=== PATIENT | female | born 1970 | race Caucasian/White ===

== ENCOUNTER 2021-08-09 01:35 | Day surgery (SDC) | payer OTHER, SELFPAY ==
[2021-07-25 13:30] VITALS: BMI 24.2
[2021-08-09 07:04] VITALS: BP 127/77; RESP 18; TEMP 36; O2SAT 98
[2021-08-09] MEDS: LACTATED RINGERS 1,000 ML 150 ML IV CONT (07:18)
--- NOTE | 2021-08-09 07:38 | P.PNAN_ITS ---
Anes - Initial Pre Proc Eval Procedure: Operation Date: 08/09/21 08:00 Proposed Procedures p Screening Colonoscopy - Michael Camarena MD Date/Time: 08/09/21 07:38 Surgeon: Michael Camarena MD Pre Op Diagnosis: neoplasm screening Patient Data Age: 51 Gender: F Height: 1.57 m Weight: 60.9 kg Last Vital Signs Temp 36.0 C L 08/09/21 07:04 Resp 18 08/09/21 07:04 BP 127/77 08/09/21 07:04 Pulse Ox 98 08/09/21 07:04 Allergies Allergy/AdvReac Type Severity Reaction Status Date / Time No Known Allergies Allergy Verified 08/09/21 07:00 Home Medications Medication Instructions Recorded Confirmed Type No Home Medications 07/25/21 08/09/21 History Patient hx anesthesia problems: none Family hx anesthesia problems: none Results Review: All pre-operative results and documents have been reviewed as part of the pre-operative evaluation. [facility] Social History Social History Smoking status: Never smoker Alcohol intake: current Drinks per week: 2 Substance use: never Substance use type: does not use Living arrangements: with family Spiritual care concerns: No Anes - Eval Final PreProcedure Day of Procedure 08/09/21 07:38 Patient weight: normal Heart: regular rate and rhythm Lungs: clear to auscultation Airway: Mallampati scale class II Neurological: alert and oriented Last oral intake: >/= 8 hours ASA classification: I Emergent: no Anesthetic plan: proceed Anesthesia type and monitoring: general GIVS and standard monitoring Results Review: All pre-operative results and documents have been reviewed as part of the pre-operative evaluation. Informed Consent: The patient's anesthetic plan and its attendant risks and benefits were discussed with the patient/family/POA. Questions were solicited and answers provided to the satisfaction of the patient/family/POA.
--- NOTE | 2021-08-09 07:52 | PM.HPGS ---
History of Present Illness History of Present Illness Consent: Risks, benefits, and alternatives have been discussed and questions answered. Patient agrees to proceed with procedure. Chief complaint: neoplasm screening Narrative: Adina Sims is a 51 year old female here for first screening colonoscopy Review of Systems Constitutional: Constitutional: Denies headache(s) and Denies weakness Eyes: Eyes: Denies blurry vision ENT: Reports Normal hearing present, Denies headache(s) and Denies neck pain Cardiovascular: Cardiovascular: Denies chest pain and Denies dyspnea Respiratory: Respiratory: Denies dyspnea Gastrointestinal: Gastrointestinal: Reports no additional gastrointestinal complaints Genitourinary: Genitourinary: Denies dysuria Musculoskeletal: Musculoskeletal: Denies neck pain Integumentary/Breasts: Skin/Breast: Denies dry skin Neurologic: Reports Normal hearing present, Denies headache(s) and Denies weakness Psychiatric: Psychiatric: Denies anxiety Endocrine: Endocrine: Denies change in body appearance Hematologic/Lymphatic: Hematologic/Lymphatic: Denies easy bleeding Allergic/Immunologic: Allergic/Immunologic: Denies urticaria PMF Past Medical History Medical History (Updated 08/09/21 @ 07:53 by Michael Camarena MD) Colon cancer screening Social History Social History Smoking status: Never smoker Alcohol intake: current Drinks per week: 2 Substance use: never Substance use type: does not use Living arrangements: with family Spiritual care concerns: No Meds Home Medications and Allergies Home Medications Medication Instructions Recorded Confirmed Type No Home Medications 07/25/21 08/09/21 History Allergies Allergy/AdvReac Type Severity Reaction Status Date / Time No Known Allergies Allergy Verified 08/09/21 07:00 Vital Signs Vital Signs - 24 hr 08/09/21 07:04 Temperature 96.8 F L Respiratory Rate 18 Blood Pressure 127/77 Pulse Oximetry 98 Exam Const: General: comfortable and no acute distress HENMT: General nose exam: Normal nares present Eyes: General: appearance normal, both eyes and all related structures Neck: Neck: no JVD Resp: Auscultation: clear to auscultation bilaterally Cardio: Rate: regular rate Rhythm: regular rhythm GI: Inspection: non-distended GI Palp: Yes Soft to palpation Skin: General skin exam: normal color Neuro: General: gait normal Speech: normal speech Extrem: General: normal to inspection Psych: Mental Status: mental status grossly normal Assessment and Plan Assessment and plan (1) Colon cancer screening: Code(s): Z12.11 - Encounter for screening for malignant neoplasm of colon Status: Acute Assessment and Plan: colonoscopy
[2021-08-09 08:21] VITALS: BP 99/61; PULSE 62; RESP 15; O2SAT 100
[2021-08-09 08:31] VITALS: BP 122/72; PULSE 57; RESP 12; O2SAT 100
[2021-08-09 08:41] VITALS: BP 114/78; PULSE 54; RESP 12; O2SAT 100
== END 2021-08-09 08:46 | disposition home or self-care (01) ==
PROVIDERS: PCP Emergency Medicine; Visit Provider Internal Medicine Gastroenterology
PROC: 0DJD8ZZ Inspection of Lower Intestinal Tract, Via Natural or Artificial Opening Endoscopic (ICD-10-PCS; CPT 45378; principal; 2021-08-09 08:00)
DX: Z12.11 Encounter for screening for malignant neoplasm of colon (principal); K64.8 Other hemorrhoids; D12.3 Benign neoplasm of transverse colon
CPT/HCPCS: 45385; 88305; J2704; J7120

== ENCOUNTER 2021-11-19 21:10 | Emergency (ER) | payer OTHER, SELFPAY ==
[2021-11-19] VITALS (18 sets, daily range): BP systolic 116–181; BP diastolic 67–98; PULSE 73–99; RESP 12–29; TEMP 36.9; O2SAT 95–99
--- NOTE | ~2021-11-19 | CT_ITS ---
EXAMINATION: CT brain wo con DATE: 11/19/2021 21:39 INDICATION: Headache. Near syncope. TECHNIQUE: Computed tomography (CT) of the head was performed without intravenous contrast. The mA wa s adjusted according to patient size. Iterative reconstruction technique was employed. The dose-lengt h product was 605.33 mGy-cm. COMPARISON: Head CT 08/11/2014 FINDINGS: There is a large distribution of acute subarachnoid hemorrhage, worst in the suprasellar ci kerr and right sylvian fissure. There is no acute ischemic infarct or abnormal mass lesion. The vent ricles are normal in size. The orbits are normal. The paranasal sinuses are clear. The mastoid air ce lls are normal. IMPRESSION: 1. Large distribution of acute subarachnoid hemorrhage, worst in the suprasellar cistern and right sy lvian fissure suspicious for ruptured aneurysm. I called this result to Dr. Keen. Reviewed, dictated and finalized at location [facility]. W MACHINE REPAIRER IMPRESSION: 1. Large distribution of acute subarachnoid hemorrhage, worst in the suprasella r cistern and right sylvian fissure suspicious for ruptured aneurysm. I called this result to Dr. Keen.
--- NOTE | ~2021-11-19 | CT_ITS ---
EXAMINATION: CTA brain carotid DATE: 11/19/2021 22:21 INDICATION: Acute subarachnoid hemorrhage. TECHNIQUE: Computed tomographic angiography (CTA) of the head was performed with 100 mL Omnipaque-350 intravenous contrast. CTA of the neck was performed with intravenous contrast. Automated exposure co ntrol and iterative reconstruction technique were employed. The dose-length product was 967.54 mGy-cm . Maximum intensity projection and volume rendered 3D-reconstructions were created by the [employer] t on a separate workstation. COMPARISON: Head CT 11/19/2021, 08/11/2014 FINDINGS: HEAD CTA: There is a large distribution of acute subarachnoid hemorrhage, worst in the suprasellar ci kerr and right sylvian fissure. There is no acute ischemic infarct or abnormal mass lesion. The vent ricles are normal in size. The paranasal sinuses are clear. The orbits are normal. The mastoid air ce lls are normal. Right vertebral artery is dominant. There is no significant stenosis of basilar arter y or the posterior cerebral arteries. The posterior communicating arteries are normal. There is no si gnificant stenosis of the intracranial internal carotid arteries or anterior or middle cerebral arter ies. There is a 3 mm saccular aneurysm of right middle cerebral artery. Anterior communicating artery is normal. NECK CTA: There is mild scarring at the lung apices. There are no pathologically enlarged lymph nodes . There is no significant stenosis of the vertebral arteries. There is mild plaque in the proximal in ternal carotid arteries. There is 0% stenosis of the proximal right internal carotid artery relative to normal distal artery lumen diameter (NASCET criteria). There is 17% stenosis of the proximal left internal carotid artery relative to normal distal artery lumen diameter. There is severe cervical spo ndylosis. IMPRESSION: 1. Extensive acute subarachnoid hemorrhage, worst in the suprasellar cistern and right sylvian fissur e. 2. 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 3. 0% stenosis of the proximal right internal carotid artery relative to normal distal artery lumen d iameter (NASCET criteria). 4. 17% stenosis of the proximal left internal carotid artery relative to normal distal artery lumen d iameter. Reviewed, dictated and finalized at location A. ENER IMPRESSION: 1. Extensive acute subarachnoid hemorrhage, worst in the suprasellar cistern an d right sylvian fissure. 2. 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 3. 0% stenosis of the proximal right internal carotid artery relative to normal distal artery lumen diameter (NASCET criteria). 4. 17% stenosis of the proximal left internal carotid artery relative to normal distal artery lumen diameter.
--- NOTE | 2021-11-19 21:23 | ECG_ITS ---
Measurements Intervals [place] Rate: 81 P: 64 SD: 183 QRS: -3 QRSD: 110 T: 5 QT: 412 QTc: 480 Interpretive Statements SINUS RHYTHM POSSIBLE LEFT ATRIAL ENLARGEMENT INCOMPLETE RIGHT BUNDLE BRANCH BLOCK BORDERLINE T WAVE ABNORMALITY- ANTERIOR LEADS BASELINE ARTIFACT- II, III, AVL, AVF, V1, V3-V6 BORDERLINE ECG Electronically Signed On 11-20-2021 6:30:28 SENIOR JAVA SOFTWARE ENGINEER by Julio César Mon D.O.
--- NOTE | 2021-11-19 21:25 | ED.GENADULT ---
HPI - General Adult General Chief complaint: Headache Stated complaint: DIZZY VOMITING NECK AND BACK PAIN Time Seen by Provider: 11/19/21 21:18 Source: patient History of Present Illness HPI narrative: Patient is 51 y/o female complaining of sudden onset headache and neck pain starting 45 minutes to 1 hour ago. She state that she was carry soda back to the house from garage when this happened. She describes her pain as throbbing and rates it as 7/10. There is no alleviating or exacerbating factor. She has some nausea and vomiting. She has no focal weakness or numbness. states that she appeared confused when this happened initially. Related Data Home Medications Medication Instructions Recorded Confirmed No Home Medications 11/19/21 11/19/21 Allergies Allergy/AdvReac Type Severity Reaction Status Date / Time ampicillin Allergy Hives Verified 11/19/21 21:23 Review of Systems Constitutional: Constitutional: Denies chills, Denies fever(s), Reports headache(s) and Denies weakness Eyes: Eyes: Denies blurry vision ENT: Reports headache(s) and Reports neck pain Cardiovascular: Cardiovascular: Denies chest pain and Denies dyspnea Respiratory: Respiratory: Denies cough and Denies dyspnea Gastrointestinal: Gastrointestinal: Denies abdominal pain, Denies diarrhea, Reports nausea and Reports vomiting Genitourinary: Genitourinary: Denies hematuria and Denies dysuria Musculoskeletal: Musculoskeletal: Denies back pain and Reports neck pain Neurologic: Reports headache(s) and Denies weakness PMF Past Medical History Medical History Colon cancer screening Social History Social History Smoking status: Never smoker Alcohol intake: current Drinks per week: 2 Substance use: never Substance use type: does not use Spiritual care concerns: No Exam Const: General: no acute distress and well developed Orientation/consciousness: oriented to person, oriented to place, oriented to time and patient oriented x3 HENMT: Head: normocephalic Ears: external ears normal General nose exam: Normal external nose present Eyes: General: appearance normal, both eyes and all related structures Conjunctivae: conjunctivae normal Neck: Neck: normal visual inspection and full ROM Chest: Chest palpation & inspection: normal inspection of the chest and no tenderness Resp: Effort & Inspection: normal respiratory effort Auscultation: clear to auscultation bilaterally Cardio: Rate: regular rate Rhythm: regular rhythm GI: GI Palp: No abdominal tenderness and Yes Soft to palpation Skin: General skin exam: normal color and turgor normal Neuro: General: oriented to person, oriented to place, oriented to time and patient oriented x3 Cognition (Neuro): normal cognition Extrem: General: normal to inspection, full ROM and no pedal edema Psych: Appearance: grossly normal Mental Status: mental status grossly normal Affect: normal affect Course Reevaluation(s) Reevaluation #1: Called Pharmacy. Nimodipine is not available. Consultations Consultation #1: Discussed with Dr. Merchant (neurosurgery) at [facility], who agrees to accept the patient for transfer. He also recommends TXA if available and keep MAP < 110. Date: 11/19/21 Time: 22:01 Vital Signs Vital signs: Vital Signs Temperature 36.9 C 11/19/21 21:16 Pulse Rate 75 11/19/21 21:16 Respiratory Rate 18 11/19/21 21:16 Blood Pressure 133/85 11/19/21 21:16 Pulse Oximetry 99 11/19/21 21:16 Temperature 36.9 C 11/19/21 21:16 Pulse Rate 99 11/20/21 02:01 Respiratory Rate 13 11/20/21 02:01 Blood Pressure 136/80 11/20/21 02:01 Pulse Oximetry 100 11/20/21 01:46 Medical Decision Making Vital Signs Vital Signs: Vital Signs Temperature 36.9 C 11/19/21 21:16 Pulse Rate 75 11/19/21 21:16 Respiratory Rate 18 11/19/21 21:16
[2021-11-19] MEDS: SODIUM CHLORIDE 0.9% IV 1,000 ML 999 ML IV CONT (21:47)
[2021-11-19] MEDS: fentaNYL CITRATE INJ (*CRX) 100 MCG/2 ML VIAL 50 MCG IV PUSH (21:48)
[2021-11-19] MEDS: METOCLOPRAMIDE HCL INJ 10 MG/2 ML VIAL IV PUSH (21:48)
[2021-11-19] MEDS: LABETALOL HCL INJ 100 MG/20 ML VIAL 20 MG IV PUSH (21:56)
[2021-11-19] MEDS: levETIRAcetam 1000MG/NACL100ML 1,000 MG/100 ML BAG 400 MG IVPB (21:56)
[2021-11-19 22:32] LABS: Basophils Absolute Auto 0.1 K/mm3 (0.0-0.1); Basophils Percent Auto 0.5 % (0.2-1.2); Eosinophils Percent Auto 0.1 % (0-4.4); Hematocrit 35.1 % (37.0-47.0); Hemoglobin 11.6 g/dL (12.0-15.0); Immature Granulocyte Absolute 0.07 K/mm3 (0.00-0.031); Immature Granulocyte Percent A 0.5 % (0-0.5); Lymphocytes Absolute Auto 0.75 K/mm3 (0.9-3.2); Lymphocytes Percent Auto 5.4 % (18.3-44.2); Mean Corpuscular Hemoglobin 28.4 pg (26-34); Mean Platelet Volume 9.5 fl (7.4-10.4); Monocytes Absolute Auto 0.6 K/mm3 (0.1-0.6); Monocytes Percent Auto 4.5 % (2.6-8.5); Neutrophils Absolute Auto 12.3 K/mm3 (1.3-6.7); Platelet Count Result 268 k/mm3 (150-375); Red Blood Count 4.08 M/mm3 (4.2-5.4); White Blood Count 13.8 K/mm3 (4.5-10.0)
[2021-11-19] MEDS: TRANEXAMIC ACID 1,000 MG/10 ML AMPUL 1000 MG IV PUSH (22:35)
[2021-11-19] MEDS: niCARdipine 20 MG/200 ML 20 MG/200 ML BAG 50 MG IV CONT (22:36)
[2021-11-19 22:42] LABS: INR 1.2; Prothrombin Time 14.8 Seconds (11.1-14.7)
[2021-11-19 22:43] LABS: Anion Gap 10 mmol/L (8-16); Blood Urea Nitrogen 20 mg/dL (7-17); Calcium 8.5 mg/dL (8.4-10.2); Carbon Dioxide 26 mmol/L (22-30); Chloride 100 mmol/L (98-107); Estimated CRCL calculation 78 ml/min; Estimated Glomerular Filt Rate > 60; Glucose 141 mg/dL (65-110); Partial Thromboplastin Time 27.3 SECONDS (22.3-36.8); Potassium 3.3 mmol/L (3.4-5.0); Sodium 136 mmol/L (137-145)
[2021-11-19 22:45] LABS: EDCOVIDSCREEN Negative (Negative)
[2021-11-19] MEDS: POTASSIUM CHLORIDE 20 MEQ TABLET PO (23:10)
[2021-11-20] VITALS (13 sets, daily range): BP systolic 124–136; BP diastolic 66–80; PULSE 95–104; RESP 13–16; O2SAT 98–100
[2021-11-20] MEDS: ONDANSETRON INJ 4 MG/2 ML VIAL IV PUSH (01:57)
[2021-11-20] MEDS: fentaNYL CITRATE INJ (*CRX) 100 MCG/2 ML VIAL 50 MCG IV PUSH (01:58)
== END 2021-11-20 02:25 | disposition short-term general hospital (02) ==
PROVIDERS: Emergency Provider Emergency Medicine; PCP Emergency Medicine
DX: I60.9 Nontraumatic subarachnoid hemorrhage, unspecified (principal); I67.1 Cerebral aneurysm, nonruptured; I10 Essential (primary) hypertension; Z20.822 Contact with and (suspected) exposure to COVID-19; R94.31 Abnormal electrocardiogram [ECG] [EKG]; I45.10 Unspecified right bundle-branch block
CPT/HCPCS: 70450; 70496; 70498; 80048; 85025; 85610; 85730; 87426; 93005; 96361; 96365; 96366; 96374; 96375; 99291; A9270; C9803; J1953; J2405; J2765; J3010; J7030; Q9967

== ENCOUNTER 2023-03-26 16:10 | Outpatient (CLI) | payer OTHER, SELFPAY ==
--- NOTE | ~2023-03-26 | MM_ITS ---
EXAMINATION: MM screening hilda BI w jeanette HISTORY: Screening mammogram TECHNIQUE: Craniocaudal and mediolateral oblique 3-D tomosynthesis images were obtained and synthetic 2-D images were generated. CAD analysis was submitted and interpreted. COMPARISON: No prior mammogram is available for comparison at this institution. BREAST PARENCHYMAL COMPOSITION:The breasts are heterogeneously dense, which may obscure small masses. FINDINGS: No suspicious mass, calcification, or architectural distortion are identified in either tara ast to suggest malignancy. IMPRESSION: No mammographic evidence of malignancy. Recommend routine screening mammography in one year. BI-RADS Category 1: Negative Reviewed, dictated and finalized at location .
== END 2023-03-26 16:11 | disposition home or self-care (01) ==
PROVIDERS: PCP Emergency Medicine; Visit Provider Emergency Medicine
DX: Z12.31 Encounter for screening mammogram for malignant neoplasm of breast (principal)
CPT/HCPCS: 77063; 77067